=== PATIENT | female | born 1985 | race Caucasian/White ===

== ENCOUNTER 2017-02-13 14:02 | Emergency (ER) | payer MEDICAID ==
[~2017-02-13] VITALS: Ht 167.6 cm; Wt 56.7 kg
--- NOTE | 2017-02-13 15:41 | NUR ---
Patient discharged to home in stable conditon. Written and verbal after care instructions given. Patient verbalizes understanding of instructions.
== END 2017-02-13 15:42 | disposition home or self-care (01) ==
LOC: ER 14:02
DX: M25.572 Pain in left ankle and joints of left foot (principal); M79.672 Pain in left foot; Z88.0 Allergy status to penicillin; X58.XXXA Exposure to other specified factors, initial encounter; Y93.02 Activity, running; Y99.8 Other external cause status; Y92.89 Other specified places as the place of occurrence of the external cause
CPT/HCPCS: 73562; 73610; 73630; A4663

== ENCOUNTER 2017-04-20 09:47 | Emergency (ER) | payer MEDICAID, OTHER ==
[~2017-04-20] VITALS: Ht 167.6 cm; Wt 61.2 kg
--- NOTE | 2017-04-20 11:01 | NUR ---
mse completed, pt d/c'd home, aci/rx x2 given. pt ambulated w/o diff/took all belongings.
[2017-04-20 11:02] VITALS: BP 112/74
== END 2017-04-20 11:02 | disposition home or self-care (01) ==
LOC: ER 09:47
DX: L23.9 Allergic contact dermatitis, unspecified cause (principal); Z88.0 Allergy status to penicillin
CPT/HCPCS: 99283; A4663